=== PATIENT | male | born 1980 | race Caucasian/White ===

== ENCOUNTER 2019-01-21 15:40 | Emergency (ER) | payer MEDICAID, SELFPAY ==
[2019-01-21 15:40] VITALS: BP 145/70; PULSE 100; RESP 18; TEMP 36.1; O2SAT 99; BMI 26.6
[2019-01-21 16:50] LABS: Absolute Neutrophil Count 10.8 X10^3/uL (2.0-7.7); Basophil# 0.03 X10^3/uL; Basophil% 0.2 % (0-1); Eosinophil# 0.14 X10^3/uL; Eosinophils% 0.9 % (0-5); Hematocrit 48.1 % (40-54); Hemoglobin 16.8 g/dl (13.0-16.5); Lymphocyte % 20.3 % (19-41); Mean Corp Hgb Conc 34.9 g/gl (32-36); Mean Corpuscular Volume 94.5 fL (80-94); Monocyte# 1.09 X10^3/uL; Monocyte% 7.1 % (0-10); Neutrophil % 70.8 % (47-70); Platelet Count 302 K/mm3 (150-450); RBC Distribution Width CV 13.3 % (11.6-14.6); RBC Distribution Width SD 46.2 fl (35.1-43.9); Red Blood Count 5.09 M/mm3 (4.6-6.2); White Blood Count 15.3 K/mm3 (4.4-11.0)
[2019-01-21 16:52] LABS: POSITIVE COUNT NO; POSITIVE DIFFERENTIAL NO; POSITIVE MORPHOLOGY NO
[2019-01-21 16:55] LABS: Anion Gap 5 (5-15); BUN 12 mg/dL (7-18); BUN/Creat Ratio 14.5 RATIO (10-20); Calcium,Total 8.9 mg/dL (8.5-10.1); Chloride 105 mmol/L (98-107); Creatinine, Serum 0.83 mg/dL (0.70-1.30); EST Glomerular Filtration Rate 110 mL/min (>60); Est Glom Filt Rate - Afr Amer 133 mL/min (>60); Estimated Creatinine Clearance 119.49 ml/min; Glucose 121 mg/dL (74-106); Potassium 3.7 mmol/L (3.5-5.1); Sodium Level 136 mmol/L (136-145)
--- NOTE | 2019-01-21 17:10 | US_ITS ---
STUDY: ABDOMINAL ULTRASOUND - RIGHT UPPER QUADRANT REASON FOR VISIT: Male, 38 years old. Pain TECHNIQUE: Ultrasound evaluation of the right upper quadrant was performed with real-time and static brody-scale imaging. TECHNICAL QUALITY: Adequate. COMPARISON: None. FINDINGS: Liver: The liver measures 17 cm. There is normal echogenicity of the liver. The bile ducts are within normal limits. There is hepatic color flow. The direction of portal flow is hepatopetal. There is no demonstrated mass lesion. Gallbladder: Normal distended gallbladder. The gallbladder wall measures 3 mm. There is a negative sonographic Armstrong's sign. There is no pericholecystic fluid. The gallbladder contains a gallstone. Common Bile Duct (C.B.D.): The common bile duct measures 3 mm. Pancreas: Normal size of the head, body and tail of the pancreas. There is normal echogenicity of the pancreas. There is no demonstrated pancreatic mass or cyst. Right Kidney: Normal size of the right kidney. The right kidney measures 11 cm. Normal renal cortex. There is no demonstrated renal mass or cyst. There is no right hydronephrosis. US/Gallbladder IMPRESSION: No acute pathology identified in the right upper quadrant. Cholelithiasis. Electronically Signed: Marcos Ospina, at 18:12 EDT Tel , Service support ,
[2019-01-21] MEDS: Morphine 4 MG/ML Syringe IV (17:19)
[2019-01-21] MEDS: Ondansetron 4 MG/2 ML Vial IV (17:19)
[2019-01-21 17:30] LABS: Bacteria 0 SEEN /hpf (None Seen); Mucous, Urine 0 SEEN /hpf (<or=2+); Red Blood Cells-Urine 0 SEEN /hpf (0-5)
[2019-01-21 17:51] LABS: Color, Urine Yellow (Yellow); Glucose, Dipstick Normal (Normal); Ketone-Dipstick Negative (Negative); Leukocyte Esterase-Dipstick Negative /ul (Negative); Nitrite-Dipstick Negative (Negative); Occult Blood-Urine Negative /ul (Negative); Protein-Dipstick Negative (Negative); Specific Gravity, Urine 1.015 (1.002-1.030); Urine Bilirubin Dipstick Negative (Negative); Urine Clarity Clear (Clear); Urine Urobilinogen Normal (Normal); Urine pH 6.5 (5.0 - 8.0)
[2019-01-21 17:56] VITALS: BP 139/91; PULSE 90; RESP 17; O2SAT 96
[2019-01-21] MEDS: 0.9% Normal Saline 1,000 ML 150 ML IV (17:56)
[2019-01-21 18:16] LABS: Squamous Epithelial Cells - UA 0-5 SEEN /hpf (0-5); White Blood Cells 0-5 SEEN /hpf (0-5)
[2019-01-21 18:17] LABS: AST(SGOT) 12 U/L (15-37); Alanine Aminotransfer ALT/SGPT 20 U/L (16-61); Albumin, Serum 3.9 g/dL (3.2-5.0); Alkaline Phosphatase 58 U/L (45-117); Bilirubin, Direct 0.16 mg/dL (0.00-0.30); Globulin 3.8 g/dL (2.2-4.2); Lipase 90 U/L (73-393); Protein, Total 7.7 g/dL (6.4-8.2)
--- NOTE | 2019-01-21 18:20 | CT_ITS ---
STUDY: CT ABDOMEN AND PELVIS WITHOUT CONTRAST REASON FOR EXAM: Male, 38 years old. Pain RADIATION DOSAGE (If Supplied By Facility): DLP = ( 378.60 ) mGycm TECHNIQUE: Transaxial images were obtained from the dome of the diaphragm to the symphysis pubis without oral contrast, and without intravenous contrast. Sagittal and coronal images were reconstructed. Individualized dose optimization techniques were used for this CT. COMPARISON: None. FINDINGS: Evaluation of the abdominal viscera is limited in the absence of intravenous contrast. The visualized lung bases are clear. The visualized portions of the heart and pericardium are within normal limits. The gallbladder contains a gallstone. The liver demonstrates an unremarkable unenhanced appearance. The spleen is normal in size. The pancreas demonstrates an unremarkable unenhanced appearance. The adrenal glands are within normal limits. There are no obstructing renal stones. There is no hydronephrosis. Normal visualized stomach. There is no bowel obstruction or inflammation. Scattered colonic diverticula are present. The appendix is normal. The aorta is normal in caliber. There is no abdominal or pelvic free air, free fluid, fluid collection or lymphadenopathy. There are no destructive osseous lesions. CT/Abdomen/Pelvis without Cont IMPRESSION: No acute abdominal or pelvic pathology demonstrated on this noncontrast CT. Normal appendix. Cholelithiasis. Scattered colonic diverticula without evidence of inflammation. Electronically Signed: Marcos Ospina, at 18:56 EDT Tel , Service support ,
[2019-01-21 19:00] VITALS: BP 128/86; PULSE 82; RESP 16; O2SAT 98
--- NOTE | 2019-01-21 19:51 | ED.DCSUM_ITS ---
- ER Visit Summary Date of Service: 01/21/19 Chief Complaint: Abdominal pain History of Present Illness: The patient is a 38 M who woke at 430 this morning with right upper quadrant pain radiating to his back. He reports nausea and vomiting. He reports a bit of fever and chills that started last evening. He denies any prior abdominal surgeries. Physical Examination: Vital signs unremarkable. He is afebrile. Patient sitting upright in bed no acute distress. He does appear uncomfortable but not toxic. Head and neck examination is unremarkable. Heart is regular rate and rhythm. Lung sounds are clear. Abdomen is soft with tenderness in the right upper quadrant. Hypoactive bowel sounds are present. Back examination reveals no CVA tenderness. Test Results: CBC was a white count of 15.3 and hemoglobin concentrated at 16.8. Chemistry studies unremarkable. LFTs and lipase normal. Urinalysis normal. Right upper quadrant ultrasound shows no acute pathology. CT flank shows no acute pathology. Emergency Department Course and Treatment: Patient was given morphine, Zofran, and IV fluids. On repeat evaluation he feels significantly improved. Test results were discussed with patient and at bedside. He does have long- standing reflux and problems with acid. He will be given a prescription for Zofran and Prilosec. Treatment Plan: [] Disposition: Discharge Impression: Abdominal pain, uncertain etiology, improved This note was generated with [employer] dictation software. It may contain incorrect words, spelling, and punctuation that were not noted in review of the chart prior to signing ED Disposition - Plan for ED Patient: Disposition: Home or Assisted Living Instructions: ED Abdominal Pain Unkn Cause Male Prescriptions: Ondansetron [Zofran Odt] 4 mg PO Q8H PRN PRN #10 tablet PRN Reason: Nausea Omeprazole [Prilosec] 20 mg PO DAILY #30 capsule Referrals: Hilda Rogers MD [STAFF PHYSICIAN] - 1-2 Weeks
[2019-01-21 20:12] VITALS: BP 135/84; PULSE 80; RESP 18; O2SAT 97
== END 2019-01-21 20:12 | disposition home or self-care (01) ==
PROVIDERS: Emergency Provider Emergency Medicine
DX: R10.11 Right upper quadrant pain (principal); R11.2 Nausea with vomiting, unspecified; K21.9 Gastro-esophageal reflux disease without esophagitis; Z79.899 Other long term (current) drug therapy; Z72.0 Tobacco use
CPT/HCPCS: 74176; 76705; 80048; 80076; 81001; 83690; 85025; 96361; 96374; 96375; 99283; J7040; J2405